=== PATIENT | female | born 1980 | race Caucasian/White ===

== ENCOUNTER 2018-06-30 01:50 | Inpatient (IN) | payer OTHER ==
[~2018-06-30] VITALS: Ht 152.4 cm; Wt 53.4 kg
[2018-06-30 02:39] VITALS: Ht 152.4 cm; Wt 53.4 kg
--- NOTE | 2018-06-30 03:17 | NUR ---
MD Sutton answering service contacted at 0300 for admission orders - awaiting for call back.
--- NOTE | 2018-06-30 03:33 | NUR ---
Received report from DESHAWN Michel from [facility] at 0111. Pt arrived on unit at 0200 via EMS. Pt stable and in no apparent distress. Head to toe assessment done. Pictures taken of sacrococcyx and bilateral heels. Allergy band and ID band on pt. Received new telephone orders from Dr. Sutton. Will carry out new orders.
[2018-06-30] MEDS ORDERED: ACETAMINOPHEN 325 MG TAB PO PRN (04:00)
[2018-06-30] MEDS: SOD CHLORIDE 0.9% 1,000 ML IV SCH (04:20)
[2018-06-30 04:26] VITALS: BP 101/56; PULSE 80; RESP 16
[2018-06-30] MEDS: PANTOPRAZOLE (EC) 40 MG TAB PO SCH (05:22)
[2018-06-30] MEDS ORDERED: KETOROLAC 15 MG INJ IV STA (06:26)
--- NOTE | 2018-06-30 06:52 | NUR ---
EOSS No acute changes in patient's condition. VSS. Pt A&OX4. Pt denies pain. All due meds given. IV fluids given. Hgb 7.2. Received contingency order to transfuse if Hgb <8. Will carry out orders. Bed kept in lowest position. Call light left within reach. Will endorse to next shift.
[2018-06-30 08:06] VITALS: BP 92/54; PULSE 55; RESP 16
[2018-06-30] MEDS: FERROUS SULFATE (EC) 325 MG TAB PO SCH ×3 (09:00→20:48)
[2018-06-30] MEDS: MULTIVITAMINS THERAPEUTIC TAB PO SCH (10:43)
[2018-06-30 14:00] VITALS: BP 94/50; PULSE 78; RESP 15
--- NOTE | 2018-06-30 15:49 | QN ---
Documentation Comment seen and examined ANGI CALIX MD Jun 30, 2018 15:49
--- NOTE | 2018-06-30 17:07 | HP ---
DATE OF ADMISSION: 06/30/2018 REASON FOR ADMISSION: Anemia. HISTORY OF PRESENTING ILLNESS: This is a 37-year-old female with a past medical history of fibroids, history of metromenorrhagia, who had required blood transfusion in the past, was transferred from [facility] secondary to low hemoglobin. The patient said that she had a history of fibroids a nd heavy periods. She was seen in 11/2017 in [facility]. At that time, the patient had an ultrasound of the pelvis that showed large mid body fibroid which is increased in size, 1.4 x 1.1 x 1 .3 cm and ____ with the right ovary which represents involution cyst. The patient also had a CT of t he abdomen and pelvis that showed 5.4 cm submucosal fibroid at the uterine fundus, 1.2 cm dermoid cys t in the right ovary, 0.2 cm nonobstructing right renal calculus. The patient was supposed to get a surgery as an outpatient; however ____ classes and had been deferring surgery. The patient has been having heavy periods that started 2 days ago. She has been feeling weak, tired. She was seen by the PCP and her hemoglobin was checked was 6.3 and was told to go to the ER for evaluation. The patient went to [facility] and was found to have blood pressure of 81/57. Hemoglobin was 6.4 and w as transferred for blood transfusion. PAST MEDICAL HISTORY: 1. History of fibroids. 2. Ovarian cyst. ALLERGIES: LEVAQUIN. PAST SURGICAL HISTORY: x2. MEDICATIONS TAKING AT HOME: Iron pills which is currently not taking. SOCIAL HISTORY: Denies any history of smoking, alcohol or any drug use. 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 FAMILY HISTORY: Noncontributory. REVIEW OF SYSTEMS: The patient complained of some weakness, some shortness of breath, tiredness. De nies any headache, any blurry vision. The patient is currently on her periods, had to change like 1 pad every 1 hour before. Denied any headache, any shortness of breath. Denied any hematemesis, any melena, any bright red blood per rectum. PHYSICAL EXAMINATION: VITAL SIGNS: Currently, blood pressure 92/54, afebrile, pulse 55, respirations 16. GENERAL: The patient is awake, alert, oriented, does not appear to be in acute distress. HEENT: Pupils are equal, round, reactive to light. NECK: Supple. No JVD. HEART: Regular rate. LUNGS: Clear to auscultation bilaterally. ABDOMEN: Well-healed surgical scar. Positive bowel sounds. EXTREMITIES: No clubbing, cyanosis or edema. NEUROLOGIC: Nonfocal. LABORATORY DATA: BMP within normal limit. White count 8.5, hemoglobin 7.2, platelet count 340. ASSESSMENT AND PLAN: This is a 37-year-old female presenting with: 1. Recurrent anemia secondary to metromenorrhagia secondary to fibroid. 2. Right ovarian cyst. 3. History of . 4. Severe acute blood loss anemia secondary to fibroid. PLAN: At this period of time, the patient is admitted to med/surg. The patient will receive blood t ransfusion. We will also check for iron panel. The patient will also require likely IV iron. We wi ll continue the patient on multivitamins. We will call MANAGER TRANSFER consultation. Rest of the treatment will depend on the patient's hospitalization course. Dictated By: ANGI SILVER/JAJA Conf#: [id number] DID#: [id number] CC: JOAQUIN PERKINS MD;*EndCC*
--- NOTE | 2018-06-30 18:04 | NUR ---
END OF SHIFT NOTES: PT STABLE, ALERT & ORIENTED X4. NO DISTRESS NOTED. PT ON MENSTRUAL CYCLE. MD CALIX WILL CONSULT OB FOR POSSIBLE SX. S/P 1 UNIT PRBC, VS STABLE, NO TRANSFUSION REACTION NOTED. INSTRUCTED PT TO CALL FOR ASSISTANCE. VS WNL.HOURLY ROUNDING. CALL LIGHT WITHIN REACH.ALL NEEDS MET. NO NEW COMPLAINTS.
[2018-06-30 20:00] VITALS: BP 100/58; PULSE 74; RESP 18
[2018-07-01 02:00] VITALS: BP 101/55; PULSE 75; RESP 17
[2018-07-01] MEDS: SOD CHLORIDE 0.9% 1,000 ML IV SCH (04:00)
--- NOTE | 2018-07-01 05:03 | NUR ---
EOSS: Pt still asleep at this time w/ no s/s of distress. Slept well through the night. Denies pain. Needs attended to. Safety precautions in place. Comfort measures provided. Frequent checks done. Encouraged to call for help whenever necessary. Will endorse accordingly.
[2018-07-01] MEDS: PANTOPRAZOLE (EC) 40 MG TAB PO SCH (06:52)
[2018-07-01 07:42] VITALS: BP 94/55; PULSE 74; RESP 16
[2018-07-01] MEDS: MULTIVITAMINS THERAPEUTIC TAB PO SCH (09:00)
[2018-07-01] MEDS: FERROUS SULFATE (EC) 325 MG TAB PO SCH ×3 (09:00→20:55)
[2018-07-01 13:20] VITALS: BP 113/62; PULSE 78; RESP 18
--- NOTE | 2018-07-01 17:33 | PN ---
Date/Time of Note Date/Time of Note DATE: 07/01/18 TIME: 17:30 Assessment/Plan VTE Prophylaxis Risk score (from Ns)>0 risk: 1 [place]CD applied [place] [facility] No SCD contraindicated: low risk/ambulating Pharmacological prophylaxis: NA/contraindicated Pharm contraindication: low risk/ambulating Lines/Catheters IV Catheter Type (from [facility]): Peripheral IV Urinary Cath still in place: No Assessment/Plan Hospital Course is is a 37-year-old female presenting with: 1. Recurrent anemia secondary to metromenorrhagia secondary to fibroid. 2. Right ovarian cyst. 3. History of . 4. Severe acute blood loss anemia secondary to fibroid. PLan - Spoke to Dr Martínez who will see pt today - Hb 8.7 today - cw fe - cw MVI Dispo pending Pet Caregiver consult, pt wished to have surgery done, spoke to patient with DESHAWN Gutierrez at bedside, all questions answered Result Diagram: 07/01/18 0528 06/30/18 0445 Results 24hrs Laboratory Tests Test 07/01/18 05:28 07/01/18 07:34 White Blood Count 6.8 Red Blood Count 4.32 Hemoglobin 8.7 #L Hematocrit 30.0 L Mean Corpuscular Volume 69.4 L Mean Corpuscular Hemoglobin 20.1 L Mean Corpuscular Hemoglobin Concent 29.0 L Red Cell Distribution Width 22.7 H Platelet Count 341 Mean Platelet Volume 10.4 Immature Granulocytes % 0.300 Neutrophils % 53.7 Lymphocytes % 30.5 Monocytes % 11.3 H Eosinophils % 3.5 Basophils % 0.7 Nucleated Red Blood Cells % 0.0 Immature Granulocytes # 0.020 Neutrophils # 3.7 Lymphocytes # 2.1 Monocytes # 0.8 Eosinophils # 0.2 Basophils # 0.1 Nucleated Red Blood Cells # 0.0 Lab Scanned Report BLOOD TRANSFUSION Subjective 24 Hr Interval Summary Free Text/Dictation Pt says periods have stopped today Hb 8.7 Exam/Review of Systems Vital Signs Vitals Vital Signs Date Temp Pulse Resp B/P (MAP) Pulse Ox O2 O2 Flow FiO2 Time Delivery Rate 07/01/18 98.4 78 18 113/62 99 Room Air 13:20 (79) Intake and Output 06/30/18 06/30/18 07/01/18 1515:00 23:00 07:00 IntakeIntake Total 990 ml 650 ml 440 ml BalanceBalance 990 ml 650 ml 440 ml Exam GENERAL: The patient is awake, alert, oriented, does not appear to be in acute distress. HEENT: Pupils are equal, round, reactive to light. NECK: Supple. No JVD. HEART: Regular rate. LUNGS: Clear to auscultation bilaterally. ABDOMEN: Well-healed surgical scar. Positive bowel sounds. EXTREMITIES: No clubbing, cyanosis or edema. NEUROLOGIC: Nonfocal. Medications Medications Current Medications Sodium Chloride 1,000 ml @ 30 mls/hr Q24H IV Last administered on 06/30/18at 04:20; Admin Dose 30 MLS/HR; Start 06/30/18 at 04:00 Multivitamins Therapeutic (Theragran) 1 tab DAILY PO Last administered on 07/01/18at 09:00; Admin Dose 1 TAB; Start 06/30/18 at 09:00 Ferrous Sulfate (Ferrous Sulfate (Ec)) 325 mg TID PO ; Start 06/30/18 at 09:00 Acetaminophen (Tylenol Tab) 650 mg Q6H PRN PO MILD PAIN(1-3)OR ELEVATED TEMP; Start 06/30/18 at 04:00 Pantoprazole (Protonix Tab) 40 mg DAILY@06 PO Last administered on 07/01/18at 06:52; Admin Dose 40 MG; Start 06/30/18 at 06:00 ANGI CALIX MD Jul 01, 2018 17:33
--- NOTE | 2018-07-01 18:14 | HP ---
Date/Time of Note Date/Time of Note DATE: 07/01/18 TIME: 18:02 Assessment/Plan VTE Prophylaxis Risk score (from Nsg)>0 risk: 1 SCD applied (from Nsg): No SCD contraindicated: low risk/ambulating Pharmacological prophylaxis: NA/contraindicated Lines/Catheters IV Catheter Type (from Nrsg): Peripheral IV Urinary Cath still in place: No Assessment/Plan Hospital Course Severe anemia due to continuous menometrorrhagia, rule out thyroid problems History of menorrhagia since menarche. Cannot rule out VWD Fibroid uterus, menometrorrhagia could be related to submucosal fibroid Status post medical treatment with OCP, Depo-Provera and hormonal IUD and failed treatment Recommended Pelvic ultrasound for assessment evaluation of fibroid location and numbers TFT labs as well as prolactin CBC and iron studies Will discuss the patient after above labs regarding plan of care Recommended the patient to take iron twice a day with stool softener at this time patient appears to be hemodynamically stable If TFT labs are abnormal recommended treatment since thyroid dysfunction can also contribute to abnormal uterine bleeding We will follow-up the patient after above labs and studies patient will be seen by upcoming OB hospitalist tomorrow Result Diagram: 07/01/18 0528 06/30/18 0445 Results 24hrs Laboratory Tests Test 07/01/18 05:28 07/01/18 07:34 White Blood Count 6.8 Red Blood Count 4.32 Hemoglobin 8.7 #L Hematocrit 30.0 L Mean Corpuscular Volume 69.4 L Mean Corpuscular Hemoglobin 20.1 L Mean Corpuscular Hemoglobin Concent 29.0 L Red Cell Distribution Width 22.7 H Platelet Count 341 Mean Platelet Volume 10.4 Immature Granulocytes % 0.300 Neutrophils % 53.7 Lymphocytes % 30.5 Monocytes % 11.3 H Eosinophils % 3.5 Basophils % 0.7 Nucleated Red Blood Cells % 0.0 Immature Granulocytes # 0.020 Neutrophils # 3.7 Lymphocytes # 2.1 Monocytes # 0.8 Eosinophils # 0.2 Basophils # 0.1 Nucleated Red Blood Cells # 0.0 Lab Scanned Report BLOOD TRANSFUSION HPI/ROS Admit Date/Time Admit Date/Time Jun 30, 2018 at 01:50 Hx of Present Illness 37-year-old female sent to emergency room due to fatigue, shortness of breath, fainting episodes and severe anemia. Reports history of anemia and menorrhagia with fibroid uterus. Had 3 blood transfusion due to menorrhagia. Last blood transfusion in [facility] which she had a CT and ultrasound that confirmed presence of fibroids. Patient reports menorrhagia since menarche but never had been worked up. Reports family history of fibroid and menorrhagia as well. Status post control pill as well as Depo-Provera and Mirena IUD which she failed treatment. She expelled IUD and had continuous menometrorrhagia with OCP and Depo-Provera. She was planned initially to proceed with hysterectomy recommended by her EMBROIDERY OPERATOR however due to intermittent improvement of her symptoms decided not to proceed and due to recurrence of her symptoms including iron deficiency and severe anemia, and that was detected by her PCP in her outpatient visit she was sent to the hospital. Reports lately he has episodes of fainting and fatigue and decreased energy. 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 Cycles last about 14 days and change her pads every 1-2- hour Not using any control Family history significant for history of fibroid and menorrhagia in her mother Family history: Fibroid, mother Menorrhagia, mother Anemia, mother Medications Current Medications Multivitamins Therapeutic (Theragran) 1 tab DAILY PO Last administered on 07/01/18at 09:00; Admin Dose 1 TAB; Start 06/30/18 at 09:00 Ferrous Sulfate (Ferrous Sulfate (Ec)) 325 mg TID PO ; Start 06/30/18 at 09:00 Acetaminophen (Tylenol Tab) 650 mg Q6H PRN PO MILD PAIN(1-3)OR ELEVATED TEMP; Start 06/30/18 at 04:00 Pantoprazole (Protonix Tab) 40 mg DAILY@06 PO Last administered on 07/01/18at 06:52; Admin Dose 40 MG; Start 06/30/18 at 06:00 Coded Allergies: levofloxacin (Verified Allergy, Unknown, 06/30/18) Social History Smoking Status: Former smoker Exam/Review of Systems Vital Signs Vitals Vital Signs Date Temp Pulse Resp B/P (MAP) Pulse Ox O2 O2 Flow FiO2 Time Delivery Rate 07/01/18 98.4 78 18 113/62 99 Room Air 13:20 (79) Intake and Output 06/30/18 06/30/18 07/01/18 1515:00 23:00 07:00 IntakeIntake Total 990 ml 650 ml 440 ml BalanceBalance 990 ml 650 ml 440 ml Exam Constitutional: alert, oriented, well developed Psych: no complaints, nl mood/affect Head: normocephalic, atraumatic Eyes: nl conjunctiva, nl lids ENMT: nl external ears & nose Neck: supple, non-tender Respiratory: clear to auscultation, normal air movement Cardiovascular: regular rate and rhythm, nl pulses Gastrointestinal: soft, nl liver, spleen, non-tender Genitourinary - Female: nl adnexae, other (Uterus about 13-14 cm and firm consistent with fibroid uterus. No fullness or tenderness in theNoted) Musculoskeletal: nl extremities to inspection Extremities: normal pulses Neurological: SUPERVISOR EVAPORATOR II-XII intact Lymph: nl lymph nodes ELLIOTT GEE MD Jul 01, 2018 18:14
--- NOTE | 2018-07-01 18:47 | NUR ---
EOSS: Patient was seen by Gun Perforator Loader, new orders given, will carry out. Blood draw and ultrasound were done. Pt is resting comfortably in bed, with no signs of distress or discomfort. No active bleeding currently. IV are HL, patent and intact. Call light within reach, reinforced safety with patient to call when getting OOB for assistance especially if experiencing dizziness. Side rails up x2.
[2018-07-01 20:00] VITALS: BP 112/58; PULSE 80; RESP 17
[2018-07-02 02:00] VITALS: BP 104/57; PULSE 70; RESP 18
--- NOTE | 2018-07-02 04:21 | NUR ---
shift report: no significant change of condition was noted . Patient was able to sleep comfortably. No active bleeding was reported up to this time.Denies pain and discomfort. Patient refused iron tablet as she said it is causing her constipation and MD was aware. Patient is instructed to call for assistance. hourly rounding is done. all needs met and attended. will continue to monitor.
[2018-07-02] MEDS: PANTOPRAZOLE (EC) 40 MG TAB PO SCH (05:31)
[2018-07-02 07:39] VITALS: BP 90/55; PULSE 63; RESP 16
[2018-07-02] MEDS: FERROUS SULFATE (EC) 325 MG TAB PO SCH ×2 (09:00→13:00)
[2018-07-02] MEDS: MULTIVITAMINS THERAPEUTIC TAB PO SCH (10:26)
--- NOTE | 2018-07-02 13:32 | PN ---
Date/Time of Note Date/Time of Note DATE: 07/02/18 TIME: 13:30 Assessment/Plan VTE Prophylaxis Risk score (from Ns)>0 risk: 0 SCD applied (from Ns): No SCD contraindicated: other (need SCD) Pharmacological prophylaxis: NA/contraindicated Pharm contraindication: bleeding Lines/Catheters IV [facility]ter Type (from [facility]): [place] Lock Urinary Cath still in place: No Assessment/Plan Hospital Course 1. Recurrent anemia secondary to metromenorrhagia secondary to fibroid. 2. Right ovarian cyst. 3. History of . 4. Severe acute blood loss anemia secondary to fibroid. Assessment/Plan - pt agreed for hysterectomy - follow Hb, 9.8 from 8.7 - cw fe -DVT prophylaxis SCD bilaterally -GI prophylaxis Protonix - cw MVI Result Diagram: 07/02/18 1141 06/30/18 0445 Results 24hrs Laboratory Tests Test 07/01/18 18:43 07/02/18 11:41 Thyroid Stimulating Hormone (TSH) 0.535 Free Thyroxine 1.32 Free Triiodothyronine (T3) pg/mL 3.82 White Blood Count 6.0 Red Blood Count 4.87 Hemoglobin 9.8 L Hematocrit 33.7 L Mean Corpuscular Volume 69.2 L Mean Corpuscular Hemoglobin 20.1 L Mean Corpuscular Hemoglobin Concent 29.1 L Red Cell Distribution Width 24.3 H Platelet Count 377 Mean Platelet Volume 10.8 H Immature Granulocytes % 0.300 Neutrophils % 61.6 Lymphocytes % 25.8 Monocytes % 8.4 Eosinophils % 2.9 Basophils % 1.0 Nucleated Red Blood Cells % 0.0 Immature Granulocytes # 0.020 Neutrophils # 3.7 Lymphocytes # 1.5 Monocytes # 0.5 Eosinophils # 0.2 Basophils # 0.1 Nucleated Red Blood Cells # 0.0 Subjective 24 Hr Interval Summary Constitutional: no complaints, improved Exam/Review of Systems Vital Signs Vitals Vital Signs Date Temp Pulse Resp B/P (MAP) Pulse Ox O2 O2 Flow FiO2 Time Delivery Rate 07/02/18 98.5 63 16 90/55 (67) 98 Room Air 07:39 Intake and Output 07/01/18 07/01/18 07/02/18 1515:00 23:00 07:00 IntakeIntake Total 1320 ml 660 ml 120 ml BalanceBalance 1320 ml 660 ml 120 ml Exam Constitutional: alert, oriented Respiratory: clear to auscultation Cardiovascular: regular rate and rhythm Gastrointestinal: soft Medications Medications Current Medications Multivitamins Therapeutic (Theragran) 1 tab DAILY PO Last administered on 07/02/18at 10:26; Admin Dose 1 TAB; Start 06/30/18 at 09:00 Ferrous Sulfate (Ferrous Sulfate (Ec)) 325 mg TID PO ; Start 06/30/18 at 09:00 Acetaminophen (Tylenol Tab) 650 mg Q6H PRN PO MILD PAIN(1-3)OR ELEVATED TEMP; Start 06/30/18 at 04:00 Pantoprazole (Protonix Tab) 40 mg DAILY@06 PO Last administered on 07/02/18at 05:31; Admin Dose 40 MG; Start 06/30/18 at 06:00 HEATH RAWLS Jul 02, 2018 13:32
--- NOTE | 2018-07-02 13:50 | PDOCDIS ---
Discharge Instructions CONDITION [id number] Patient Condition: [id number] Stable HOME CARE INSTRUCTIONS: [id number] Special Diet: Zzdjp3o regular ACTIVITY: [id number] Activity Restrictions: [id number] Slowly Increase Activity Rest between Activity Avoid heavy lifting No Sexual Activity FOLLOW UP/APPOINTMENTS Follow-up Plan PCP 1 week F/up gynecology for hysterectomy HEATH RAWLS Jul 02, 2018 13:50
[2018-07-02] MEDS ORDERED: FOLI-49 PO (13:52)
[2018-07-02] MEDS ORDERED: FERR240T9 PO (13:52)
--- NOTE | 2018-07-02 13:54 | DS ---
Date/Time of Note Date/Time of Note DATE: 07/02/18 TIME: 13:54 Discharge Summary Admission/Discharge Info Admit Date/Time Jun 30, 2018 at 01:50 Discharge Date/Time Discharge Diagnosis Metromenorrhagia, severe anemia Patient Condition: Stable Consults Gynecology Hospital Course This is a 37-year-old female with a past medical history of fibroids, history of metromenorrhagia, who had required blood transfusion in the past, was transferred from [facility] secondary to low hemoglobin. The patient said that she had a history of fibroids and heavy periods. She was seen in 11/2017 in [facility]. At that time, the patient had an ultrasound of the pelvis that showed large mid body fibroid which is increased in size, 1.4 x 1.1 x 1.3 cm and involution cyst right ovary. The patient also had a CT of the abdomen and pelvis that showed 5.4 cm submucosal fibroid at the uterine fundus, 1.2 cm dermoid cyst in the right ovary, 0.2 cm nonobstructing right renal calculus. 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 The patient has been having heavy periods that started 2 days ago. She has been feeling weak, tired. She was seen by the PCP and her hemoglobin was checked was 6.3 and was told to go to the ER for evaluation. The patient went to [facility] and was found to have blood pressure of 81/57. Hemoglobin was 6.4 and was transferred for blood transfusion. PAST MEDICAL HISTORY: 1. History of fibroids. 2. Ovarian cyst. 1. Recurrent anemia secondary to metromenorrhagia secondary to fibroid. 2. Right ovarian cyst. 3. History of . 4. Severe acute blood loss anemia secondary to fibroid. during hospitalization pt was in medsurg unit. Her anemia was improved, h and h was drawn. Pt had iron injection IV daily and had MVI. Pt has DVT prophylaxis with SCD bilaterally, GI prophylaxis with Protonix. Pt was consuled by gynecology specialist and was recommended hysterectomy. Pt aware, agreed and will follow up outpatient. Home Meds Active Scripts Folic Acid* (Folic Acid*) 1 Mg Tablet, 1 MG PO DAILY for 30 Days, TAB Prov:HEATH RAWLS 07/02/18 Ferrous Gluconate (Iron) 240 Mg Tablet, 240 MG PO BID for 30 Days, TAB Prov:HEATH RAWLS 07/02/18 Follow-up Plan PCP 1 week F/up gynecology for hysterectomy Primary Care Provider Not On Staff Doctor Time spent on discharge: < 30 minutes Pending Labs Laboratory Tests Test 07/01/18 18:43 07/02/18 11:41 Thyroid Stimulating 0.535 MIU/L (0.465-4.680) Hormone (TSH) Free Thyroxine 1.32 ng/dl (0.79-2.35) Free Triiodothyronine 3.82 pg/ml (2.77-5.27) (T3) pg/mL White Blood Count 6.0 10^3/ul (4.8-10.8) Red Blood Count 4.87 10^6/ul (4.20-5.40) Hemoglobin 9.8 g/dl (12.0-16.0) Hematocrit 33.7 % (37.0-47.0) Mean Corpuscular Volume 69.2 fl (82.0-101.0) Mean Corpuscular 20.1 pg (29.0-33.0) Hemoglobin Mean Corpuscular 29.1 g/dl (32.0-37.0) Hemoglobin Concent Red Cell Distribution 24.3 % (11.5-14.5) Width Platelet Count 377 10^3/UL (140-415) Mean Platelet Volume 10.8 fl (7.4-10.4) Immature Granulocytes % 0.300 % (0.001-0.429) Neutrophils % 61.6 % (39.0-77.0) Lymphocytes % 25.8 % (15.0-51.0) Monocytes % 8.4 % (0.0-11.0) Eosinophils % 2.9 % (0.0-7.0) Basophils % 1.0 % (0.0-2.0) Nucleated Red Blood Cells 0.0 /100WBC (0.0-0.0) % Immature Granulocytes # 0.020 10^3/ul (0.0-0.031) Neutrophils # 3.7 10^3/ul (1.6-7.5) Lymphocytes # 1.5 10^3/ul (0.8-2.9) Monocytes # 0.5 10^3/ul (0.3-0.9) Eosinophils # 0.2 10^3/ul (0.0-0.5) Basophils # 0.1 10^3/ul (0.0-0.1) Nucleated Red Blood Cells 0.0 10^3/ul (0.0-0.0) HEATH LUU Jul 02, 2018 13:54
--- NOTE | 2018-07-02 14:31 | NUR ---
Discharge Notes Patient discharged home all instructions reviewed and understood. No complaints of pain, weakness, dizziness or n/v, no signs of distress, vitals stable.
--- NOTE | 2018-07-02 16:29 | QN ---
Documentation Comment patient was seen at bedside,interviewed had x3 hospitalization for the last 4yrs,each time [id number] blood transfusion. according to patient , since her last delivery 16yrs ago her period has been irregular and on and off had vaginal bleeding for whole yr u/s revealed 4.5cm submucous fibroid and small subserosal fibroid blood count 9.8/29 patient is stable currently advise her to go see PMD to frefer her to [facility] who is her insurance provider to have treatment as soon as she is discharged TANYA GRECO MD Jul 02, 2018 16:29
== END 2018-07-02 14:30 | disposition home or self-care (01) | DRG 812 ==
LOC: 2NE 01:50
PROVIDERS: ADMIT Internal Medicine Nephrology; ATTEND Internal Medicine Nephrology
PROC: 30233N1 Transfusion of Nonautologous Red Blood Cells into Peripheral Vein, Percutaneous Approach (ICD-10-PCS; principal; 2018-06-30)
DX: D62 Acute posthemorrhagic anemia (principal); N92.1 Excessive and frequent menstruation with irregular cycle; D25.0 Submucous leiomyoma of uterus; N83.201 Unspecified ovarian cyst, right side
CPT/HCPCS: 36430; 76856; 80048; 83540; 84146; 84439; 84443; 84481; 85025; 86644; 86850; 86900; 86901; 86920; 87081; J7030; P9016

== ENCOUNTER 2019-01-06 20:48 | Inpatient (IN) | payer OTHER ==
[~2019-01-06] VITALS: Ht 154.9 cm; Wt 50.6 kg
[~2019-01-06 20:48] MED LIST: FOLI-49 PO; [UNRECOGNIZED DRUG - CODE] PO
[2019-01-06] MEDS ORDERED: SOD CHLORIDE 0.9% 0 ML IV ONE (23:15)
[2019-01-07] MEDS ORDERED: ONDANSETRON 4 MG INJ IV PRN
[2019-01-07 01:38] VITALS: BP 101/55; PULSE 70
[2019-01-07 01:41] VITALS: Ht 154.9 cm; Wt 50.6 kg
[2019-01-07] MEDS ORDERED: DIPH25CA6 PO (01:47)
[2019-01-07] MEDS ORDERED: BISA-57 PO (01:50)
--- NOTE | 2019-01-07 02:21 | ERD ---
ER Documentation Chief Complaint Chief Complaint Pt sent for Hgb of 6.7 HPI 38-year-old female with a history of fibroids and anemia secondary to fibroids is presenting for blood transfusion. She was sent by her primary care physician who noted that she had a low hemoglobin on preop blood tests. He could not medically clear her for surgery that she is scheduled for next week. He recommended she go to the ER for blood transfusion. Goal hemoglobin is above 9. Patient states that she is not symptomatic. She is denying any shortness of breath, fatigue, dizziness, chest pain, palpitations. She is very eager to have the surgery and would like a transfusion so she may go through with it. Currently she is not having any vaginal bleeding or abdominal pain. ROS All systems reviewed and are negative except as per history of present illness. Medications Home Meds Active Scripts Folic Acid* (Folic Acid*) 1 Mg Tablet, 1 MG PO DAILY for 30 Days, TAB Prov:HEATH RAWLS 07/02/18 Ferrous Gluconate (Iron) 240 Mg Tablet, 240 MG PO BID for 30 Days, TAB Prov:HEATH RAWLS 07/02/18 Reported Medications Bisacodyl* (Dulcolax*) 5 Mg Tablet.dr, PO DAILY PRN for CONSTIPATION, TAB 01/07/19 Diphenhydramine Hcl* (Diphenhydramine Hcl*) 25 Mg Capsule, 25 MG PO QHS PRN for INSOMNIA, CAP 01/07/19 Allergies Allergies: Coded Allergies: levofloxacin (Verified Allergy, Unknown, 06/30/18) PMhx/Soc History of Surgery: Yes (C-SECTIONS, BREAST AUGMENTATION) Anesthesia Reaction: No Hx Neurological Disorder: No Hx Respiratory Disorders: No Hx Cardiac Disorders: No Hx Psychiatric Problems: Yes (Depression, fibroids) Hx Miscellaneous Medical Probl: No Hx Alcohol Use: No Hx Substance Use: No Hx Tobacco Use: No Smoking Status: Former smoker FmHx Family History: No diabetes Physical Exam Vitals Vital Signs Date Temp Pulse Resp B/P (MAP) Pulse Ox O2 O2 Flow FiO2 Time Delivery Rate 01/07/19 98.3 82 15 104/73 100 Room Air 00:45 (83) 01/06/19 98.3 94 19 120/81 100 Room Air 23:55 (94) 01/06/19 98.3 81 19 106/64 100 Room Air 22:10 (78) 01/06/19 98.3 94 16 115/74 100 20:50 (88) Physical Exam Const: No acute distress Head: Atraumatic Eyes: Normal Conjunctiva ENT: Normal External Ears, Nose and Mouth. Neck: Full range of motion. No meningismus. Resp: Clear to auscultation bilaterally Cardio: Regular rate and rhythm, no murmurs. 2+ distal pulses in all 4 extremities. Cap refill normal Abd: Soft, non tender, non distended. Normal bowel sounds Skin: No petechiae or rashes Back: No midline or flank tenderness Ext: No cyanosis, or edema Neur: Awake and alert Psych: Normal Mood and Affect Result Diagram: 01/06/19220401/06/192204 Results 24 hrs Laboratory Tests Test 01/06/19 22:05 White Blood Count 7.7 10^3/ul Red Blood Count 3.78 10^6/ul Hemoglobin 6.8 g/dl Hematocrit 24.5 % Mean Corpuscular Volume 64.8 fl Mean Corpuscular Hemoglobin 18.0 pg Mean Corpuscular Hemoglobin Concent 27.8 g/dl Red Cell Distribution Width 17.8 % Platelet Count 367 10^3/UL Mean Platelet Volume 10.0 fl Immature Granulocytes % 0.300 % Neutrophils % % Segmented Neutrophils % (Manual) 45 % Lymphocytes % % Lymphocytes % (Manual) 39 % Monocytes % % Monocytes % (Manual) 11 % Eosinophils % % Eosinophils % (Manual) 4 % Basophils % % Basophils % (Manual) 1 % Nucleated Red Blood Cells % 1 % Immature Granulocytes # 0.020 10^3/ul Neutrophils # 10^3/ul Lymphocytes (Manual) 3.0 10^3/ul Lymphocytes # 10^3/ul Monocytes # 10^3/ul Monocytes # (Manual) 0.8 10^3/ul Eosinophils # 10^3/ul Basophils # 10^3/ul Basophils # (Manual) 0.0 10^3/ul Nucleated Red Blood Cells # 10^3/ul Platelet Estimate NORMAL Giant Platelets 1 % Polychromasia 1+ Hypochromasia 3+ Poikilocytosis 2+ Anisocytosis 2+ Microcytosis 2+ Prothrombin Time 11.9 Sec Prothrombin Time Ratio 0.9 INR International Normalized Ratio 0.87 Activated Partial Thromboplast Time 29.2 Sec Sodium Level 142 mmol/L Potassium Level 3.6 mmol/L Chloride Level 107 mmol/L Carbon Dioxide Level 24 mmol/L Anion Gap 11 Blood Urea Nitrogen 20 mg/dl Creatinine 0.54 mg/dl Est Glomerular Filtrat Rate mL/min > 60 mL/min Glucose Level 89 mg/dl Calcium Level 9.6 mg/dl Total Bilirubin 0.3 mg/dl Direct Bilirubin 0.00 mg/dl Indirect Bilirubin 0.3 mg/dl Aspartate Amino Transf (AST/SGOT) 15 IU/L Alanine Aminotransferase (ALT/SGPT) 17 IU/L Alkaline Phosphatase 56 IU/L Total Protein 8.6 g/dl Albumin 4.8 g/dl Globulin 3.80 g/dl Albumin/Globulin Ratio 1.26 Current Medications Medications Dose Sig/Michelle Start Time Status Last (Trade) Ordered Route PRN Stop Time Admin Dose Reason Admin Sodium 0 ml @ 0 Q0M ONCE 01/06/19 DC 01/06/19 Chloride mls/hr IV 23:15 01/06/19 23:15 23:16 Ondansetron 4 mg BRIDGE ORDER 01/07/19 HCl (Zofran PRN IV 00:00 01/07/19 Inj) NAUSEA/VOMITI 23:59 NG 650 mg ER BRIDGE 01/07/19 Acetaminophen PRN PO 00:00 01/07/19 (Tylenol .MILD PAIN 23:59 Tab) 1-3 OR TEMP Procedures/MDM EMERGENT LABS AND DIAGNOSTIC STUDIES: Lab Results above were reviewed and interpreted by me. CBC: no anemia or evidence of infection BMP: [no e/o clinically significant electrolyte abnormality severe acidosis, alkalosis, renal failure, diabetic ketoacidosis] 12-lead EKG was interpreted by Shayy Art MD: Normal Sinus Rhythm Normal axis Normal intervals No acute ST or T wave changes suggestive of acute ischemia or STEMI. Initial Nursing notes reviewed. Previous Medical Records requested via the Electronic Health Record. EMERGENCY DEPARTMENT COURSE / MEDICAL DECISION MAKING: Patient is presenting with asymptomatic anemia. Vitals were noted to be normal. She has no active bleeding at this time. 2 units of PRBCs were ordered. Imaging was not indicated. Patient will be admitted for observation for blood transfusion and repeat hemoglobin after transfusion. I spoke with Dr. Sutton, who is agreeable with admission plan. Critical Care Management of Hemorrhage and Symptomatic Anemia: Time: 35 minutes Treatments/Evaluations: Close monitoring and management of bleeding sources while maintaining tight balance of fluid. With judicious assessment of anemia, coagulopathy and thrombocytopenia, while considering correction with blood products and medical therapy. Accepting Care Team: Current data and ongoing care discussed. Time: Time of admission Primary Provider: Dr. 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
[2019-01-07] MEDS ORDERED: ACETAMINOPHEN 325 MG TAB PO PRN ×2 (05:00)
[2019-01-07] MEDS ORDERED: PANTOPRAZOLE (EC) 40 MG TAB PO SCH (06:00)
[2019-01-07 07:21] VITALS: BP 92/51; PULSE 71; RESP 20
[2019-01-07] MEDS ORDERED: SOD CHLORIDE 0.9% 1,000 ML IV SCH (07:30)
--- NOTE | 2019-01-07 11:31 | HP ---
HEATH RAWLS 01/07/19 1131: Date/Time of Note Date/Time of Note DATE: 01/07/19 TIME: 11:31 Assessment/Plan VTE Prophylaxis Risk score (from [facility])>0 risk: 0 SCD applied (from [facility]): No SCD contraindicated: low risk/ambulating Pharmacological prophylaxis: NA/contraindicated Pharm contraindication: low risk/ambulating Lines/Catheters [facility] Peripheral IV Assessment/Plan Hospital Course 1. Severe anemia, required 2 units of blood to be transfused. Microcytic hypochromic anemia 2. Uterine fibroids 3. hx of c section 4. Hx of breast augmentation 5. Hx of depression 6. Hx of anemia 7. SIRS, nonspecific. Assessment/Plan -GI proph. -DVT proph -iron profile Result Diagram: 01/07/19 0853 01/06/195 Results 24hrs Laboratory Tests Test 01/06/19 22:05 01/07/19 08:53 White Blood Count 7.7 # 11.2 #H Red Blood Count 3.78 #L 4.26 Hemoglobin 6.8 #*L 9.0 #L Hematocrit 24.5 #L 30.0 #L Mean Corpuscular Volume 64.8 L 70.4 L Mean Corpuscular Hemoglobin 18.0 L 21.1 L Mean Corpuscular Hemoglobin Concent 27.8 L 30.0 L Red Cell Distribution Width 17.8 #H 24.3 #H Platelet Count 367 289 # Mean Platelet Volume 10.0 11.0 H Immature Granulocytes % 0.300 0.400 Neutrophils % 74.8 Segmented Neutrophils % (Manual) 45 Lymphocytes % 12.3 L Lymphocytes % (Manual) 39 Monocytes % 10.8 Monocytes % (Manual) 11 Eosinophils % 1.3 Eosinophils % (Manual) 4 Basophils % 0.4 Basophils % (Manual) 1 Nucleated Red Blood Cells % 1 H 0.0 Immature Granulocytes # 0.020 0.040 H Neutrophils # 8.4 H Lymphocytes (Manual) 3.0 H Lymphocytes # 1.4 Monocytes # 1.2 H Monocytes # (Manual) 0.8 Eosinophils # 0.1 Basophils # 0.1 Basophils # (Manual) 0.0 Nucleated Red Blood Cells # 0.0 Platelet Estimate NORMAL Giant Platelets 1 H Polychromasia 1+ Hypochromasia 3+ Poikilocytosis 2+ Anisocytosis 2+ Microcytosis 2+ Prothrombin Time 11.9 Prothrombin Time Ratio 0.9 INR International Normalized Ratio 0.87 Activated Partial Thromboplast Time 29.2 Sodium Level 142 Potassium Level 3.6 Chloride Level 107 Carbon Dioxide Level 24 Anion Gap 11 Blood Urea Nitrogen 20 Creatinine 0.54 Est Glomerular Filtrat Rate mL/min > 60 Glucose Level 89 Calcium Level 9.6 Total Bilirubin 0.3 Direct Bilirubin 0.00 Indirect Bilirubin 0.3 Aspartate Amino Transf (AST/SGOT) 15 Alanine Aminotransferase (ALT/SGPT) 17 Alkaline Phosphatase 56 Total Protein 8.6 H Albumin 4.8 Globulin 3.80 H Albumin/Globulin Ratio 1.26 HPI/ROS Admit Date/Time Admit Date/Time Jan 07, 2019 at 01:06 Hx of Present Illness This 38-year-old female with a history of fibroids and anemia secondary to fibroids is presenting for blood transfusion. She was sent by her primary care physician who noted that she had a low hemoglobin on preop blood tests. He could not medically clear her for surgery that she is scheduled for next week. He recommended she go to the ER for blood transfusion. Goal hemoglobin is above 9. Patient states that she is not symptomatic. She is denying any shortness of breath, fatigue, dizziness, chest pain, palpitations. She is very eager to have the surgery and would like a transfusion so she may go through with it. Currently she is not having any vaginal bleeding or abdominal pain. ROS Gastrointestinal: no complaints PMH/Family/Social Past Medical History Medical History: no pertinent history Medications Current Medications Ondansetron HCl (Zofran Inj) 4 mg BRIDGE ORDER PRN IV NAUSEA/VOMITING; Start 01/07/19 at 00:00; Stop 01/07/19 at 23:59 Acetaminophen (Tylenol Tab) 650 mg ER BRIDGE PRN PO .MILD PAIN 1-3 OR TEMP; Start 01/07/19 at 00:00; Stop 01/07/19 at 23:59 Sodium Chloride 1,000 ml @ 0 mls/hr Q0M IV ; Start 01/07/19 at 07:30 Pantoprazole (Protonix Tab) 40 mg DAILY@06 PO Last administered on 01/07/19at 06:36; Admin Dose 40 MG; Start 01/07/19 at 06:00 Acetaminophen (Tylenol Tab) 650 mg Q6H PRN PO MILD PAIN(1-3)OR ELEVATED TEMP; Start 01/07/19 at 05:00 Coded Allergies: levofloxacin (Verified Allergy, Unknown, 06/30/18) Past Surgical History Past Surgical Hx: other (c section breast augmetation) Family History Significant Family History: no pertinent family hx, other Social History Alcohol Use: none Smoking Status: Former smoker Drug Use: none Exam/Review of Systems Vital Signs Vitals Vital Signs Date Temp Pulse Resp B/P (MAP) Pulse Ox O2 O2 Flow FiO2 Time Delivery Rate 01/07/19 98.7 71 20 92/51 (65) 99 07:21 01/07/19 Room Air 01:38 Intake and Output 01/06/19 01/06/19 01/07/19 1414:59 22:59 06:59 IntakeIntake Total 850 ml BalanceBalance 850 ml Exam Constitutional: alert, oriented Respiratory: clear to auscultation Cardiovascular: regular rate and rhythm Gastrointestinal: soft ANGI CALIX MD 01/07/19 1552: Assessment/Plan Assessment/Plan Assessment/Plan seen and examined pt going for surgery on thursday s sp 2 unit blood Result Diagram: 01/07/19 0853 01/06/19 2205 PMH/Family/Social Past Medical History Coded Allergies: levofloxacin (Verified Allergy, Unknown, 06/30/18) HEATH RAWLS Jan 07, 2019 11:31 ANGI CALIX MD Jan 07, 2019 15:52
--- NOTE | 2019-01-07 14:56 | PDOCDIS ---
Discharge Instructions DIAGNOSIS Discharge Diagnosis severe anemia CONDITION [id number] Patient Condition: [id number] Stable HOME CARE INSTRUCTIONS: [id number] Diet Instructions: [id number] Regular ACTIVITY: [id number] Activity Restrictions: [id number] Slowly Increase Activity Rest between Activity Avoid heavy lifting FOLLOW UP/APPOINTMENTS Follow-up Plan PCP 1 week HEATH RAWLS Jan 07, 2019 14:56
--- NOTE | 2019-01-07 14:58 | DS ---
Date/Time of Note Date/Time of Note DATE: 01/07/19 TIME: 14:58 Discharge Summary Admission/Discharge Info Admit Date/Time Jan 07, 2019 at 01:06 Discharge Date/Time Discharge Diagnosis severe anemia Patient Condition: Stable Hx of Present Illness This 38-year-old female with a history of fibroids and anemia secondary to fibroids is presenting for blood transfusion. She was sent by her primary care physician who noted that she had a low hemoglobin on preop blood tests. He could not medically clear her for surgery that she is scheduled for next week. He recommended she go to the ER for blood transfusion. Goal hemoglobin is above 9. Patient states that she is not symptomatic. She is denying any shortness of breath, fatigue, dizziness, chest pain, palpitations. She is very eager to have the surgery and would like a transfusion so she may go through with it. Currently she is not having any vaginal bleeding or abdominal pain. Hospital Course This 38-year-old female with a history of fibroids and anemia secondary to fibroids is presenting for blood transfusion. She was sent by her primary care physician who noted that she had a low hemoglobin on preop blood tests. He could not medically clear her for surgery that she is scheduled for next week. He recommended she go to the ER for blood transfusion. Goal hemoglobin is above 9. Patient states that she is not symptomatic. She is denying any shortness of breath, fatigue, dizziness, chest pain, palpitations. She is very eager to have the surgery and would like a transfusion so she may go through with it. Currently she is not having any vaginal bleeding or abdominal pain. Ds: 1. Severe anemia, required 2 units of blood to be transfused. Microcytic hypoc hromic anemia 2. Uterine fibroids 3. hx of c section 4. Hx of breast augmentation 5. Hx of depression 6. Hx of anemia 7. SIRS, nonspecific. During hospitalization there were 2 units of PRBC transfused. Analysis showed that pt had enough. Her hemoglobin level is 9 and she can proceed with uterine fibroid removal. Pt was d.c home Home Meds Active Scripts Folic Acid* (Folic Acid*) 1 Mg Tablet, 1 MG PO DAILY for 30 Days, TAB Prov:HEATH RAWLS 07/02/18 Reported Medications Bisacodyl* (Dulcolax*) 5 Mg Tablet., PO DAILY PRN for CONSTIPATION, TAB 01/07/19 Diphenhydramine Hcl* (Diphenhydramine Hcl*) 25 Mg Capsule, 25 MG PO QHS PRN for INSOMNIA, CAP 01/07/19 Discontinued Scripts Ferrous Gluconate (Iron) 240 Mg Tablet, 240 MG PO BID for 30 Days, TAB Prov:HEATH RAWLS 07/02/18 Follow-up Plan PCP 1 week Primary Care Provider Not On Staff Doctor Time spent on discharge: < 30 minutes Pending Labs Laboratory Tests Test 01/06/19 22:05 01/07/19 08:50 01/07/19 08:53 White Blood Count 7.7 11.2 10^3/ul (4.8-10.8) 10^3/ul (4.8-10.8) Red Blood Count 3.78 4.26 10^6/ul (4.20-5.40) 10^6/ul (4.20-5.40 ) Hemoglobin 6.8 9.0 g/dl (12.0-16.0) g/dl (12.0-16.0) Hematocrit 24.5 % (37.0-47.0) 30.0 % (37.0-47.0) Mean Corpuscular 64.8 70.4 Volume fl (82.0-101.0) fl (82.0-101.0) Mean Corpuscular 18.0 pg (29.0-33.0) 21.1 Hemoglobin pg (29.0-33.0) Mean Corpuscular 27.8 30.0 Hemoglobin Concent g/dl (32.0-37.0) g/dl (32.0-37.0) Red Cell 17.8 % (11.5-14.5) 24.3 % (11.5-14.5) Distribution Width Platelet Count 367 289 10^3/UL (140-415) 10^3/UL (140-415) Mean Platelet 10.0 fl (7.4-10.4) 11.0 fl (7.4-10.4) Volume Immature 0.300 0.400 Granulocytes % % (0.001-0.429) % (0.001-0.429) Neutrophils % % (39.0-77.0) 74.8 % (39.0-77.0) Segmented 45 % (39-77) Neutrophils % (Manual) Lymphocytes % % (15.0-51.0) 12.3 % (15.0-51.0) Lymphocytes % 39 % (15-51) (Manual) Monocytes % % (0.0-11.0) 10.8 % (0.0-11.0) Monocytes % 11 % (0-11) (Manual) Eosinophils % % (0.0-7.0) 1.3 % (0.0-7.0) Eosinophils % 4 % (0-7) (Manual) Basophils % % (0.0-2.0) 0.4 % (0.0-2.0) Basophils % 1 % (0-2) (Manual) Nucleated Red Blood 1 % (0-0) 0.0 Cells % /100WBC (0.0-0.0) Immature 0.020 0.040 Granulocytes # 10^3/ul (0.0-0.031) 10^3/ul (0.0-0.031 ) Neutrophils # 10^3/ul (1.6-7.5) 8.4 10^3/ul (1.6-7.5) Lymphocytes 3.0 (Manual) 10^3/ul (0.8-2.9) Lymphocytes # 10^3/ul (0.8-2.9) 1.4 10^3/ul (0.8-2.9) Monocytes # 10^3/ul (0.3-0.9) 1.2 10^3/ul (0.3-0.9) Monocytes # 0.8 (Manual) 10^3/ul (0.3-0.9) Eosinophils # 10^3/ul (0.0-0.5) 0.1 10^3/ul (0.0-0.5) Basophils # 10^3/ul (0.0-0.1) 0.1 10^3/ul (0.0-0.1) Basophils # 0.0 (Manual) 10^3/ul (0.0-0.0) Nucleated Red Blood 10^3/ul (0.0-0.0) 0.0 Cells # 10^3/ul (0.0-0.0) Platelet Estimate NORMAL Giant Platelets 1 % (0-0) Polychromasia 1+ (0-0) Hypochromasia 3+ (0-0) Poikilocytosis 2+ (0-0) Anisocytosis 2+ (0-0) Microcytosis 2+ (0-0) Prothrombin Time 11.9 Sec (11.9-14.9) Prothrombin Time 0.9 Ratio INR International 0.87 Normalized Ratio Activated 29.2 Partial Thromboplas Sec (23.0-35.0) t Time Sodium Level 142 mmol/L (135-144) Potassium Level 3.6 mmol/L (3.5-5.1) Chloride Level 107 mmol/L (97-110) Carbon Dioxide 24 mmol/L (21-31) Level Anion Gap 11 (5-13) Blood Urea 20 mg/dl (7-20) Nitrogen Creatinine 0.54 mg/dl (0.44-1.00) Est Glomerular > 60 mL/min (>60) Filtrat Rate mL/min Glucose Level 89 mg/dl (70-220) Calcium Level 9.6 mg/dl (8.4-10.2) Total Bilirubin 0.3 mg/dl (0.2-1.3) Direct Bilirubin 0.00 mg/dl (0.00-0.20) Indirect Bilirubin 0.3 mg/dl (0-1.1) Aspartate Amino 15 IU/L (15-46) Transf (AST/SGOT) Alanine 17 IU/L (13-69) Aminotransferase (A LT/SGPT) Alkaline 56 IU/L (42-121) Phosphatase Total Protein 8.6 g/dl (6.1-8.1) Albumin 4.8 g/dl (3.3-4.9) Globulin 3.80 g/dl (1.3-3.2) Albumin/Globulin 1.26 Ratio Iron Level 222 ug/dl (35-150) Total Iron Binding 425 Capacity ug/dl (241-421) Percent Iron 52 % SAT (22-52) Saturation HEATH RAWLS Jan 07, 2019 14:58
[2019-01-07 15:39] VITALS: BP 103/63; PULSE 78; RESP 20
[2019-01-07 16:33] VITALS: BP 90/52; PULSE 66; RESP 19
== END 2019-01-07 16:40 | disposition home or self-care (01) | DRG 812 ==
LOC: E/R 20:48 → 2NE 01-07 01:06
PROVIDERS: ADMIT Internal Medicine Nephrology; ATTEND Internal Medicine Nephrology
PROC: 30233N1 Transfusion of Nonautologous Red Blood Cells into Peripheral Vein, Percutaneous Approach (ICD-10-PCS; principal; 2019-01-06)
DX: D50.9 Iron deficiency anemia, unspecified (principal); D25.9 Leiomyoma of uterus, unspecified
CPT/HCPCS: 36415; 36430; 80053; 83540; 85025; 85610; 85730; 86850; 86900; 86901; 86920; 93005; J7040; P9016